=== PATIENT | female | born 1955 | race Caucasian/White ===

== ENCOUNTER 2019-03-25 14:56 | Emergency (ER) | payer OTHER ==
[~2019-03-25] VITALS: Ht 162.6 cm; Wt 91.6 kg
[2019-03-25 15:15] LABS: URINE BLOOD 3+ (Negative); URINE KETONES TRACE (Negative); URINE LEUKOCYTES 3+ (Negative); URINE NITRITE POSITIVE (Negative); URINE PROTEIN (DIPSTICK) 3+ (Negative)
[2019-03-25 15:19] LABS: URINE BILIRUBIN NEGATIVE (Negative); URINE CLARITY CLOUDY; URINE COLOR AMBER; URINE GLUCOSE-RANDOM* NEGATIVE (Negative)
[2019-03-25 15:20] LABS: ICTOTEST (BILI CONFIRMATORY) Negative (Negative)
[2019-03-25 15:23] LABS: BACTERIA None Seen /HPF (None Seen); CASTS None Seen /LPF (None Seen); CRYSTALS None Seen /LPF (None Seen); RENAL EPITHELIAL CELLS 0-3 Few /LPF (None Seen); SQUAMOUS 0-3 Few /LPF (0-3); URINE RBC 3-10 Few /HPF (0-2); URINE WBC >25 Many /HPF (0-5)
[2019-03-25] MEDS ORDERED: CIPRO500 MG PO (16:46)
[2019-03-25] MEDS ORDERED: OMEPRAZOLE20 M2 PO (16:46)
[2019-03-25 17:00] VITALS: BP 114/63
== END 2019-03-25 17:32 | disposition home or self-care (01) ==
LOC: ER 14:56
PROVIDERS: Emergency Medicine
DX: N39.0 Urinary tract infection, site not specified (principal); R05 Cough; Z88.0 Allergy status to penicillin